=== PATIENT | male | born 1950 | race Caucasian/White ===

== ENCOUNTER → 2021-10-29 | Outpatient (CLI) | payer MEDICARE, SELFPAY ==
[2021-10-29 16:03] LABS: ALB/GLOB Ratio 1.1 RATIO (0.9-2.4); AST(SGOT) 20 U/L (15-37); Alanine Aminotransfer ALT/SGPT 27 U/L (16-61); Albumin, Serum 3.8 g/dL (3.2-5.0); Alkaline Phosphatase 60 U/L (45-117); Anion Gap 9 (5-15); BUN 21 mg/dL (7-18); BUN/Creat Ratio 32.1 RATIO (10-20); Calcium,Total 8.8 mg/dL (8.5-10.1); Chloride 109 mmol/L (98-107); Cholesterol 163 mg/dL (200); Creatinine, Serum 0.65 mg/dL (0.70-1.30); EST Glomerular Filtration Rate 127 mL/min (>60); Est Glom Filt Rate - Afr Amer 154 mL/min (>60); Globulin 3.6 g/dL (2.2-4.2); Glucose 122 mg/dL (74-106); High Density Lipoprotein 38 mg/dL; Protein, Total 7.4 g/dL (6.4-8.2); Sodium Level 139 mmol/L (136-145); Triglycerides 124 mg/dL; Very Low Density Lipoprotein 25 mg/dL (5-40)
== END | disposition home or self-care (01) ==
LOC: BIMLAB 14:28
PROVIDERS: PCP Family Medicine; Visit Provider Family Medicine
DX: I10 Essential (primary) hypertension (principal)
CPT/HCPCS: 36415; 80053; 80061

== ENCOUNTER → 2025-05-22 | Outpatient (CLI) | payer MEDICARE, OTHER, SELFPAY ==
--- NOTE | 2025-05-22 08:29 | CT_ITS ---
PROCEDURE: ABDOMEN/PELVIS WITH CONTRAST 05/22/2025 REASON FOR EXAM: POLYCYSTIC LIVER TECHNIQUE: Procedure Code: [id number] Modality: CT Procedure: ABDOMEN/PELVIS WITH CONTRAST Coronal and Sagittal reconstruction series were provided. CONTRAST: Isovue 3 7 VOLUME: 100 mL One or more dose reduction techniques were used (e.g., Automated exposure control, adjustment of the mA and/or kV according to patient size, use of iterative reconstruction technique. RADIATION DOSE SUMMARY: CTDlvol: 21.39 mGy DLP: 1103.71 mGycm COMPARISON: None FINDINGS: Lung bases: The lung bases are clear. Liver: Scattered cysts in both lobes of the liver. Gallbladder: Solitary gallstone in the neck of the gallbladder. Spleen: Normal size. Pancreas: Normal size without evidence of mass surrounding inflammation or ductal dilation. Adrenals: Unremarkable Kidneys: Small bilateral parapelvic renal cysts. There is a 9.6 mm cyst in the upper medial portion of the right kidney. Subcentimeter cysts are seen in the lower pole of the right kidney. Bladder: The urinary bladder is unremarkable. There is diffuse enlargement of the prostate gland with indentation at the bladder base. The prostate measures 5.3 cm by 5.7 cm. This causes indentation of the bladder base. Prostatic calcifications are seen. Bowel: Colonic diverticulosis without diverticulitis. Appendix: Unremarkable Lymph nodes: Unremarkable. Vasculature: Mild diffuse atherosclerotic calcifications are noted. Peritoneum / Retroperitoneum: Unremarkable Bones: Degenerative changes of the spine. CT/Abdomen/Pelvis WITH Contrast IMPRESSION: Scattered hepatic cysts. Solitary gallstone in the neck of the gallbladder. Bilateral parapelvic renal cysts. Prostatic enlargement with indentation of the bladder base. Sigmoid diverticulosis. Reading Location: [id number]
--- OUTSIDE RECORDS SUMMARY | 2025-05-22 08:53 | XMS RPT_ITS | CCD ---
Author Organization [facility] Care Team Providers Care Shop Welder Name Role Phone GLADYS BUTLER DO R Primary Care Physician Julio Agudelo Attending Unavailable Brown, Gladys R Primary Care Unavailable Brown, Gladys R Referring Unavailable Julio Agudelo Attending Unavailable Julio Agudelo Referring Unavailable Brown, Gladys R Primary Care Unavailable BROWN DO, GLADYS R Primary Care Unavailable JESUS CROOK Attending Unavailab le BROWN DO, GLADYS R Primary Care Unavailable JESUS CROOK Attending Unavailab le BROWN DO, GLADYS R Primary Care Unavailable JESUS CROOK Attending Unavailab le BROWN DO, GLADYS R Primary Care Unavailable FISH JESUS PINTO Attending Unavailab MALACHI White Attending Unavailable BROWN DO, GLADYS R Primary Care Unavailable Medications Current Medications Medication Drug Class(es) Dates Sig (Normalized) Sig (Original) carvedilol 6.25 mg oral tablet (4 sources) alpha-Adrenergic Shea, beta-Adrenergic Shea Start: 07-13-2024 carvedilol 6.25 mg oral tablet Dose : 3.125 mg = 0.5 tab(s), Oral, BID, # 180 tab(s), 3 Refill(s), Pharmacy: [facility]/pharmacy #[id number], 175.3, cm, 07/13/24 11:21:00 EST, Height, kg, 07/13/24 11:21:00 EST, Dosing Weight Start Date: 07/13/24 Status: Ordered Medication Dispense Status: Completed Quantity: 180.0 Unit: tab(s) Total Allowed Fills: 4 Fills Dispensed: 0 losartan potassium 50 mg oral tablet (4 sources) Angiotensin 2 Receptor Shea Start: 07-13-2024 losartan 50 mg oral tablet Dose : 50 mg = 1 tab(s), Oral, qDay, # 90 tab(s), 3 Refill(s), Pharmacy: [facility]/pharmacy #[id number], 175.3, cm, 07/13/24 11:21:00 EST, Height, kg, 07/13/24 11:21:00 EST, Dosing Weight Start Date: 07/13/24 Status: Ordered Medication Dispense Status: Completed Quantity: 90.0 Unit: tab(s) Total Allowed Fills: 4 Fills Dispensed: 0 Problems Problem Classification Problem Date Documented Date Episodic/Chronic Conduction disorders (4 sources) Left bundle branch block 11-16-2019 Chronic Digestive congenital anomalies (1 source) Cystic disease of liver; Translations: [Cystic disease of liver] Onset: 05-15-2025 Chronic Essential hypertension (5 sources) Essential hypertension; Translations: [Essential (primary) hypertension] Onset: 05-11-2025 11-16-2019 Chronic Heart valve disorders (4 sources) Mitral valve prolapse 11-16-2019 Chronic [place]-; endo-; and myocarditis; cardiomyopathy (except that caused by tuberculosis or sexually transmitted disease) (4 sources) Cardiomyopathy 11-16-2019 Chronic Results Test Name Value Interpretation Reference Range Facility .Auto Diffon 05-14-2025 Basophil, Absolute 0.1 10 3/mcL Normal 0.0-0.3 [facility] Comment on above: Performed By: #### A DIFF, ESR, ANEU, CMP, CBC, GFR #### [address] [address] Basophils/100 WBC (Bld) 0.8 % Normal 0.0-2.5 [facility] Comment on above: Performed By: #### A DIFF, ESR, ANEU, CMP, CBC, GFR #### [id number] [place], [place] [address] Eosinophil, Absolute 0.2 10 3/mcL Normal 0.0-0.7 [facility] Comment on above: Performed By: #### A DIFF, ESR, ANEU, CMP, CBC, GFR #### [id number] [place], [place] [address] Eosinophils/100 WBC (Bld) 3.1 % Normal 0.0-6.0 [facility] Comment on above: Performed By: #### A DIFF, ESR, ANEU, CMP, CBC, GFR #### [address] [address] Lymphocyte, Absolute 2.1 10 3/mcL Normal 0.9-4.3 [facility] Comment on above: Performed By: #### A DIFF, ESR, ANEU, CMP, CBC, GFR #### [address] [address] Lymphocytes/100 WBC (Bld) 30.5 % Normal 20.0-40.0 [facility] Comment on above: Performed By: #### A DIFF, ESR, ANEU, CMP, CBC, GFR #### [address] [address] Monocyte, Absolute 0.7 10 3/mcL Normal 0.1-1.4 [facility] Comment on above: Performed By: #### A DIFF, ESR, ANEU, CMP, CBC, GFR #### [address] [address] Monocytes/100 WBC (Bld) 10.0 % Normal 2.0-13.0 [facility] Comment on above: Performed By: #### A DIFF, ESR, ANEU, CMP, CBC, GFR #### [address] [address] Neutrophils/100 WBC (Bld) 55.6 % Normal 50.0-75.0 [facility] Comment on above: Performed By: #### A DIFF, ESR, ANEU, CMP, CBC, GFR #### [address] [address] .GFRon 05-14-2025 Estimated Glomerular Filtration Rate 92 ml/min/1.73sqm Normal [facility] Comment on above: Result Comment: Stages of Chronic Kidney Disease (CKD) Stage Description eGFR(ml/min/1.73 sq.m.) CKD 1 Normal kidney function or >=90 normal kindney function with possible kidney damage (ex. Proteinuria) CKD 2 Kidney damage with mild loss 60-89 of kidney function CKD 3a Mild to moderate loss of kidney 45-59 function CKD 3b Moderate to severe loss of 30-44 of kindey function CKD 4 Severe loss of kidney function 15-29 CKD 5 Kidney failure <15 Note: (go live 2024) the eGFR calculation was updated to the 2020 CKD-EPI creatinine equation without a race factor to calculate the eGFR results. Performed By: #### A DIFF, ESR, ANEU, CMP, CBC, GFR ####[address] [address] .NEUABSon 05-14-2025 Neutrophil, Absolute 3.9 10 3/mcL Normal 2.3-8.1 [facility] Comment on above: Performed By: #### A DIFF, ESR, ANEU, CMP, CBC, GFR ####[address] [address] CBCon 05-14-2025 Erythrocyte distribution width (RBC) [Ratio] 13.6 % Normal 11.5-15.5 [facility] Comment on above: Performed By: #### A DIFF, ESR, ANEU, CMP, CBC, GFR #### [address] [address] Hematocrit (Bld) [Volume fraction] 44.6 % Normal 40.0-52.0 [facility] Comment on above: Performed By: #### A DIFF, ESR, ANEU, CMP, CBC, GFR #### [address] [address] Hgb 15.2 G/dL Normal 13.0-17.5 [facility] Comment on above: Performed By: #### A DIFF, ESR, ANEU, CMP, CBC, GFR #### [address] [address] MCH (RBC) [Entitic mass] 31.6 pg Normal 27.0-33.0 [facility] Comment on above: Performed By: #### A DIFF, ESR, ANEU, CMP, CBC, GFR #### [address] [address] MCHC 34.1 G/dL Normal 32.0-36.0 [facility] Comment on above: Performed By: #### A DIFF, ESR, ANEU, CMP, CBC, GFR #### [address] [address] MCV (RBC) [Entitic vol] 92.8 fL Normal 81.0-100.0 [facility] Comment on above: Performed By: #### A DIFF, ESR, ANEU, CMP, CBC, GFR #### [address] [address] Platelet 226 10 3/mcL Normal 150-450 [facility] Comment on above: Performed By: #### A DIFF, ESR, ANEU, CMP, CBC, GFR #### [address] [address] Platelet mean volume (Bld) [Entitic vol] 8.1 fL Normal 6.4-10.5 [facility] Comment on above: Performed By: #### A DIFF, ESR, ANEU, CMP, CBC, GFR #### [place] [address] RBC 4.80 10 6/mcL Normal 4.50-6.00 [facility] Comment on above: Performed By: #### A DIFF, ESR, ANEU, CMP, CBC, GFR #### [address] [place] [address] WBC 7.0 10 3/mcL Normal 4.5-10.8 [facility] Comment on above: Performed By: #### A DIFF, ESR, ANEU, CMP, CBC, GFR #### [place] [id number] CMPon 05-14-2025 Albumin Level 3.9 G/dL Normal 3.4-4.8 [facility] Comment on above: Performed By: #### A DIFF, ESR, ANEU, CMP, CBC, GFR ####[place] [address] Albumin/Globulin [Mass ratio] 1.1 {ratio} Normal 1.1-2.5 [facility] Comment on above: Performed By: #### A DIFF, ESR, ANEU, CMP, CBC, GFR ####[id number] [place], [place] [address] ALP [Catalytic activity/Vol] 64 U/L Normal 40-135 [facility] Comment on above: Performed By: #### A DIFF, ESR, ANEU, CMP, CBC, GFR ####[address] [address] ALT [Catalytic activity/Vol] 21 U/L Normal 16-63 [facility] Comment on above: Performed By: #### A DIFF, ESR, ANEU, CMP, CBC, GFR ####[place] [id number] AST [Catalytic activity/Vol] 12 U/L Normal 10-40 [facility] Comment on above: Performed By: #### A DIFF, ESR, ANEU, CMP, CBC, GFR ####[place] [address] Bili Total 0.8 mg/dL Normal 0.2-1.0 [facility] Comment on above: Result Comment: Use of this assay is not recommended for patients undergoing treatment with eltrombopag due to the potential for falsely elevated results. Performed By: #### A DIFF, ESR, ANEU, CMP, CBC, GFR ####[place] [address] BUN/Creatinine Ratio 21 ratio Normal 7-27 [facility] Comment on above: Performed By: #### A DIFF, ESR, ANEU, CMP, CBC, GFR ####[address] [address] Calcium [Mass/Vol] 8.9 mg/dL Normal 8.4-10.2 [facility] Comment on above: Performed By: #### A DIFF, ESR, ANEU, CMP, CBC, GFR ####[address] [address] Chloride [Moles/Vol] 105 mmol/L Normal 98-107 [facility] Comment on above: Performed By: #### A DIFF, ESR, ANEU, CMP, CBC, GFR ####[place] [id number] CO2 [Moles/Vol] 26 mmol/L Normal 23-31 [facility] Comment on above: Performed By: #### A DIFF, ESR, ANEU, CMP, CBC, GFR ####[address] [address] Creatinine [Mass/Vol] 0.78 mg/dL Normal 0.67-1.17 [facility] Comment on above: Performed By: #### A DIFF, ESR, ANEU, CMP, CBC, GFR ####[address] [address] Electrolyte Balance 10.0 mEq/L Normal 4.0-15.0 [facility] Comment on above: Performed By: #### A DIFF, ESR, ANEU, CMP, CBC, GFR ####[id number] [place], [place] [address] Globulin 3.5 G/dL Normal 2.7-4.4 [facility] Comment on above: Performed By: #### A DIFF, ESR, ANEU, CMP, CBC, GFR ####[address] [address] Glucose [Mass/Vol] 89 mg/dL Normal 83-110 [facility] Comment on above: Performed By: #### A DIFF, ESR, ANEU, CMP, CBC, GFR ####[address] [address] Potassium [Moles/Vol] 3.9 mmol/L Normal 3.5-5.1 [facility] Comment on above: Performed By: #### A DIFF, ESR, ANEU, CMP, CBC, GFR ####[address] [address] Sodium [Moles/Vol] 141 mmol/L Normal 136-145 [facility] Comment on above: Performed By: #### A DIFF, ESR, ANEU, CMP, CBC, GFR ####[address] [address] Total Protein 7.4 G/dL Normal 6.4-8.2 [facility] Comment on above: Performed By: #### A DIFF, ESR, ANEU, CMP, CBC, GFR ####[facility] [place], [place] [address] Urea nitrogen [Mass/Vol] 16 mg/dL Normal 7-18 [facility] Comment on above: Performed By: #### A DIFF, ESR, ANEU, CMP, CBC, GFR ####[place] [place], [place] [address] ESRon 05-14-2025 Erythrocyte Sed Rate 4 mm/hr Normal 0-20 [facility] Comment on above: Performed By: #### A DIFF, ESR, ANEU, CMP, CBC, GFR ####[facility] [place], [place] [address] LABORATORYOrdered By: SYSTEM SYSTEM on 05-14-2025 Albumin BCP dye [Mass/Vol] 3.9 G/dL Normal 3.4 - 4.8 G/dL AO ADM SS Albumin/Globulin [Mass ratio] 1.1 {ratio} Normal 1.1 - 2.5 ratio AO ADM SS ALP [Catalytic activity/Vol] 64 U/L Normal 40 - 135 U/L AO ADM SS ALT With P-5'-P [Catalytic activity/Vol] 21 U/L Normal 16 - 63 U/L AO ADM SS AST With P-5'-P [Catalytic activity/Vol] 12 U/L Normal 10 - 40 U/L AO ADM SS Basophils (Bld) [#/Vol] 0.1 103/mcL Normal 0.0 - 0.3 10^3/mcL AO Workflow SS Basophils/100 WBC (Bld) 0.8 % Normal 0.0 - 2.5 % AO Workflow SS Bilirubin [Mass/Vol] 0.8 mg/dL Normal 0.2 - 1 .0 mg/dL AO ADM SS Comment on above: Interpretive Data: U se of this assay is not recommended for patients undergoing treatment with eltrombopag due to the potential for falsely elevated results. Calcium [Mass/Vol] 8.9 mg/dL Normal 8.4 - 10. 2 mg/dL AO ADM SS Chloride [Moles/Vol] 105 mmol/L Normal 98 - 10 7 mmol/L AO ADM SS CO2 [Moles/Vol] 26 mmol/L Normal 23 - 31 mmol/L AO ADM SS Creatinine [Mass/Vol] 0.78 mg/dL Normal 0.67 - 1.17 mg/dL AO ADM SS Electrolyte Balance 10.0 mEq/L Normal 4.0 - 15 .0 mEq/L AO ADM SS Eosinophil, Absolute 0.2 103/mcL Normal 0.0 - 0 .7 10^3/mcL AO Workflow SS Eosinophils/100 WBC (Bld) 3.1 % Normal 0.0 - 6.0 % AO Workflow SS Erythrocyte distribution width (RBC) [Ratio] 13.6 % Normal 11.5 - 15.5 % AO Workflow SS Globulin 3.5 G/dL Normal 2.7 - 4.4 G/dL AO ADM SS GLOMERULAR FILTRATION RATE/1.73 SQ M.PREDICTED:ARVRAT:PT :SER/PLAS/BLD:QN:CREA TININE-BASED FORMULA (CKD-EPI 2020) 92 ml/min/1.73sqm Invalid Interpretation Code AO Chemistry S Comment on above: Interpretive Data: Stages of Chronic Kidney Disease (CKD) Stage Description eGFR(ml/min/1.73 sq.m.) CKD 1 Normal kidney function or >=90 normal kindney function with possible kidney damage (ex. Proteinuria) CKD 2 Kidney damage with mild loss 60-89 of kidney function CKD 3a Mild to moderate loss of kidney 45-59 function CKD 3b Moderate to severe loss of 30-44 of kindey function CKD 4 Severe loss of kidney function 15-29 CKD 5 Kidney failure <15 Note: (go live 2024) the eGFR calculation was updated to the 2020 CKD-EPI creatinine equation without a race factor to calculate the eGFR results. Glucose [Mass/Vol] 89 mg/dL Normal 83 - 110 mg/dL AO ADM SS Hematocrit (Bld) [Volume fraction] 44.6 % Normal 40.0 - 52.0 % AO Workflow SS Hemoglobin (Bld) [Mass/Vol] 15.2 G/dL Normal 13.0 - 17.5 G/dL AO Workflow SS Lymphocytes (Bld) [#/Vol] 2.1 103/mcL Normal 0.9 - 4.3 10^3/mcL AO Workflow SS Lymphocytes/100 WBC (Bld) 30.5 % Normal 20.0 - 40.0 % AO Workflow SS MCH (RBC) [Entitic mass] 31.6 pg Normal 27.0 - 33.0 pg AO Workflow SS MCHC 34.1 G/dL Normal 32.0 - 36.0 G/dL AO Workflow SS MCV (RBC) [Entitic vol] 92.8 fL Normal 81.0 - 100.0 fL AO Workflow SS Monocytes (Bld) [#/Vol] 0.7 103/mcL Normal 0.1 - 1.4 10^3/mcL AO Workflow SS Monocytes/100 WBC (Bld) 10.0 % Normal 2.0 - 13.0 % AO Workflow SS Neutrophils (Bld) [#/Vol] 3.9 103/mcL Normal 2.3 - 8.1 10^3/mcL AO Workflow SS Neutrophils/100 WBC (Bld) 55.6 % Normal 50.0 - 75.0 % AO Workflow SS Platelet mean volume (Bld) [Entitic vol] 8.1 fL Normal 6.4 - 10.5 fL AO Workflow SS Platelets (Bld) [#/Vol] 226 103/mcL Normal 150 - 450 10^3/mcL AO Workflow SS Potassium [Moles/Vol] 3.9 mmol/L Normal 3.5 - 5.1 mmol/L AO ADM SS Protein [Mass/Vol] 7.4 G/dL Normal 6.4 - 8.2 G/dL AO ADM SS RBC (Bld) [#/Vol] 4.80 106/mcL Normal 4.50 - 6.0 0 10^6/mcL AO Workflow SS Sodium [Moles/Vol] 141 mmol/L Normal 136 - 145 mmol/L AO ADM SS Urea nitrogen [Mass/Vol] 16 mg/dL Normal 7 - 18 mg/dL AO ADM SS Urea nitrogen/Creatinine [Mass ratio] 21 ratio Normal 7 - 27 ratio AO ADM SS WBC (Bld) [#/Vol] 7.0 103/mcL Normal 4.5 - 10.8 10^3/mcL AO Workflow SS LABORATORYOrdered By: Galileo Velasco on 05-14-2025 ESR Photometric method (Bld) [Velocity] 4 mm/hr Normal 0 - 20 mm/hr AO Man Heme SS Internal Medicine Office Vis iton 05-11-2025 Internal Medicine Office Visit [facility] Internal Medicine [address] [place], [place] [id number] OFFICE VISIT Date of Service: 05/11/25 MR#: [id number] Acct: [id number] Name: DENAE SUMMERS Rep #: [id number] : 1950 Provider: MIGUEL Woodward Age/Sex: 74/M Location: [facility] Status: Signed Intake Vital Signs 10/29/21 13:30 05/11/25 07:45 Height 5 ft 9 in 5 ft 9 in Weight: 214 lb BMI 31.6 BP 126/78 H Blood Pressure Location Rt brachial Position Sitting Respiration 16 Pulse 88 Pulse Source Monitor Temp 97.7 F L Temp Source Temporal Pulse Oximetry (%) 94 Oxygen Delivery Method room air Intake Visit 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 Required: No Accompanied by: Self Is patient in pain?: No Allergies No Known Allergies Allergy (Unverified 05/11/25 07:41) Medications ???Medication ???Instructions ???Recorded ???Confirmed ???Type zinc [id number] cap PO 10/28/21 05/11/25 History xqwhvezc-jxduqox-wf g afr 15 mg-2 mg-160 mg cap Have you fallen in the past year?: No Nurse's Note: patient is taking medication but doesnt know what meds he is taking or the names of the medication will call with information [facility] Medical History Tinea corporis Family History Father Pancreatic cancer Social History Smoking Status: Never smoker alcohol intake: never substance use type: does not use what type of physical activity do you participate in: none HPI HPI Details: DENAE SUMMERS, is a 74 M who presents to the office today because she had a bunch of tests and was told to f/u if he wanted to proceed with treatment. Patient states that they scanned him about a week and a half ago and saw something on the liver while they were looking at his heart. He does not know what they saw. He said that they showed scabs or blisters on the liver or something. This was while they were evaluating his heart. He states that he had some blood work but that was a year ago. He states that he feels perfectly normal. 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 He denies any abdominal pains, nausea or vomiting, bloating, or any changes in his bowels. He does have cancer in his family. His father passed from cancer. His sons both had cancer. ROS Const Constitutional: No body ache, excessive sweating, fatigue, fever(s), frequent falls, headache(s), snoring, weakness, weight change, sleep problems or change in appetite Eyes Eyes: No blurry vision, change in vision, eye pain or Light sensitivity ENT ENT: No abnormal hearing, ear or mastoid pain, tinnitus, nasal congestion, headache(s), neck pain or sore throat Resp Respiratory: No cough, shortness of breath, snoring or wheezing Cardio Cardiology: No chest pain at rest, chest pain with exertion, excessive sweating, shortness of breath, dyspnea on exertion, lightheadedness, orthopnea or palpitations Gastro GI: No abdominal pain, change in bowel habits, constipation, cramping, diarrhea, nausea/dyspepsia or vomiting Genitourinary Male: No burning urination, painful urination, urinary incontinence, urinary frequency or blood in urine Musc Musculoskeletal: No abnormal gait, joint pain, back pain, limited range of motion, neck pain, numbness, stiffness, tingling or Arthritis Skin Skin: No dry skin, redness, lesions, itchy eyes, rash or wounds Neuro Neurology: No abnormal gait, abnormal hearing, abnormal speech, dizziness, weakness, frequent falls, headache(s), memory loss, numbness or tingling Psych Psychiatric: No anxiety, No change in appetite, No depression, No memory loss and No Thoughts of harming yourself/Others Endo Endocrine: No cold intolerance, excessive sweating, fatigue, flushing, heat intolerance, increased thirst/drinking, increased hunger or weight change Aller/Imm Allergy/Immunologic : No itchy eyes, seasonal allergy symptoms, hives or wheezing Joss/Lymp Hematologic/Lymphat ic: No easy bleeding, easy bruising or enlarged lymph nodes Exam Const General: cooperative, comfortable, no acute distress, well developed and well groomed Nutritional Appearance: overweight Orientation: alert, awake and oriented x3 Limitations: mental status not altered [facility] Head: normocephalic and atraumatic Ears: hearing grossly normal bilaterally Resp Effort Inspection: normal respiratory effort, able to speak in complete sentences and symmetric chest movement Auscultation: Bilateral: Clear to Auscultation Cardio Rate: regular rate Rhythm: regular rhythm Heart So (more content not included)... Normal [facility] US ABDOMEN COMPLETEon 2024 US ABDOMEN COMPLETE ORIGINAL EXAMINATION: COMPLETE ABDOMINAL ULTRASOUND 05/08/2025 9:01 am COMPARISON: None. HISTORY: ORDERING SYSTEM PROVIDED HISTORY: Reason for Exam: liver abmormality seen on echo FINDINGS: LIVER: The liver demonstrates diffusely increased echogenicity without evidence of intrahepatic biliary ductal dilatation. The liver measures 14.5 cm. There are multiple anechoic liver cysts largest measuring up to 1.9 x 2 x 3.7 cm. Several of these foci are septated/multilocul ated for example series 1, image 51. Antegrade flow in the main portal vein. BILIARY SYSTEM: No pericholecystic fluid. Gallbladder wall is borderline measuring 3.5 mm. There are multiple echogenic shadowing gallbladder calculi. Common bile duct is within normal limits measuring 5 mm. KIDNEYS: The kidneys are unremarkable in appearance without evidence of hydronephrosis. The right kidney measures 12.3 cm in the left kidney measures 11.8 cm. There is a an anechoic parapelvic cyst in the left kidney measuring up to 3.5 x 2.8 x 3.2 cm with a septation measuring up to 3 mm (series 1, image 102). PANCREAS: The pancreas is suboptimally visualized due to shadowing bowel gas. The visualized portions are diffusely echogenic. Small lesions are not excludable. SPLEEN: The spleen is unremarkable in appearance. Spleen is within normal limits in size. The aorta and IVC are obscured due to shadowing bowel gas. OTHER: No evidence of ascites. IMPRESSION: 1. Diffusely increased hepatic echogenicity which can be seen in setting of hepatic steatosis and or other diffuse hepatocellular disease. 2. Multiple liver cysts some of which are septated/multilocul ated. Consider further evaluation with dedicated liver mass protocol CT or MRI. 3. Cholelithiasis. No secondary findings to suggest acute cholecystitis. 4. Anechoic parapelvic cyst in the left kidney measuring up to 3.5 cm with a septation measuring up to 3 mm. Recommend further evaluation with dedicated renal mass protocol CT or MRI. Interpreted by: Billie Solano Preliminary Report By: Billie Solano Electronically signed By Billie Solano Dictated Date: 05/08/2025 1:10:02 PM Prelim Date: 05/08/2025 1:18:49 PM Sign Date: 05/08/2025 1:18:49 PM Ordering Provider: JESUS STAFFORD [facility] NM MYOCARDIAL SPECT STRESS/R ESTon 05-02-2025 NM MYOCARDIAL SPECT STRESS/REST ORIGINAL NM MYOCARDIAL SPECT STRESS/REST CLINICAL STATEMENT: Cardiomyopathy, undefined, further testing TECHNIQUE: Lexiscan dose:0.4 mg Radiopharmaceutical (stress): Tc-99m Sestamibi Dose:26.9 mCi Radiopharmaceutical (rest): Tc-99m Sestamibi Dose:8.4 mCi SPECT acquisition and processing Reconstruction and reorientation of SPECT images into short axis, vertical and horizontal long axis planes Quantitative LVEF assessment COMPARISON:2013 REPORT: Poststress myocardial perfusion images showed mild perfusion defect at the inferior wall and apical lateral wall and inferior septal wall Resting images showed similar perfusion LVEF 56% with apical hypokinesis TID 1.05 IMPRESSION: 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 extending to inferior and inferior septal wall Similar perfusion defect can be explained by artifact but with focal wall motion abnormality cannot rule out infarct Diaphragmatic attenuation artifact was noted No perfusion mismatch to suggest ischemia LVEF 56% with apical hypokinesis On CT scan multiple round semi echolucencies were noted in liver, suggest clinical correlation Interpreted By: Christos Herr Preliminary Report By: Christos Herr Electronically Signed By: Christos Herr Dictated Date: 05/02/2025 12:48:56 PM Prelim Date: 05/02/2025 12:48:56 PM Sign Date: 05/02/2025 12:55:30 PM Ordering Provider:Jesus Mock [facility] .Auto Diffon 10-04-2024 Basophil, Absolute 0.1 10 3/mcL Normal 0.0-0.3 [facility] Comment on above: Performed By: #### C MP, ANEU, LIPID, ADIFF, CBC, GFR #### [place] [id number] [place], [place] [address] Basophils/100 WBC (Bld) 0.8 % Normal 0.0-2.5 [facility] Comment on above: Performed By: #### C MP, ANEU, LIPID, ADIFF, CBC, GFR #### [address] [address] Eosinophil, Absolute 0.3 10 3/mcL Normal 0.0-0.7 [facility] Comment on above: Performed By: #### C MP, ANEU, LIPID, ADIFF, CBC, GFR #### [address] [address] Eosinophils/100 WBC (Bld) 3.4 % Normal 0.0-6.0 [facility] Comment on above: Performed By: #### C MP, ANEU, LIPID, ADIFF, CBC, GFR #### [address] [address] Lymphocyte, Absolute 2.4 10 3/mcL Normal 0.9-4.3 [facility] Comment on above: Performed By: #### C MP, ANEU, LIPID, ADIFF, CBC, GFR #### [address] [address] Lymphocytes/100 WBC (Bld) 32.2 % Normal 20.0-40.0 [facility] Comment on above: Performed By: #### C MP, ANEU, LIPID, ADIFF, CBC, GFR #### [address] [address] Monocyte, Absolute 0.7 10 3/mcL Normal 0.1-1.4 [facility] Comment on above: Performed By: #### C MP, ANEU, LIPID, ADIFF, CBC, GFR #### [address] [address] Monocytes/100 WBC (Bld) 9.7 % Normal 2.0-13.0 [facility] Comment on above: Performed By: #### C MP, ANEU, LIPID, ADIFF, CBC, GFR #### [address] [address] Neutrophils/100 WBC (Bld) 53.9 % Normal 50.0-75.0 [facility] Comment on above: Performed By: #### C MP, ANEU, LIPID, ADIFF, CBC, GFR #### [address] [address] .GFRon 10-04-2024 Estimated Glomerular Filtration Rate 92 ml/min/1.73sqm Normal [facility] Comment on above: Result Comment: Stages of Chronic Kidney Disease (CKD) Stage Description eGFR(ml/min/1.73 sq.m.) CKD 1 Normal kidney function or >=90 normal kindney function with possible kidney damage (ex. Proteinuria) CKD 2 Kidney damage with mild loss 60-89 of kidney function CKD 3a Mild to moderate loss of kidney 45-59 function CKD 3b Moderate to severe loss of 30-44 of kindey function CKD 4 Severe loss of kidney function 15-29 CKD 5 Kidney failure <15 Note: (go live 2024) the eGFR calculation was updated to the 2020 CKD-EPI creatinine equation without a race factor to calculate the eGFR results. Performed By: #### C MP, ANEU, LIPID, ADIFF, CBC, GFR #### [address] [address] .NEUABSon 10-04-2024 Neutrophil, Absolute 4.0 10 3/mcL Normal 2.3-8.1 [facility] Comment on above: Performed By: #### C MP, ANEU, LIPID, ADIFF, CBC, GFR #### [address] [address] CBCon 10-04-2024 Erythrocyte distribution width (RBC) [Ratio] 13.8 % Normal 11.5-15.5 [facility] Comment on above: Performed By: #### C MP, ANEU, LIPID, ADIFF, CBC, GFR #### [address] [address] Hematocrit (Bld) [Volume fraction] 44.0 % Normal 40.0-52.0 [facility] Comment on above: Performed By: #### C MP, ANEU, LIPID, ADIFF, CBC, GFR #### [address] [address] Hgb 15.0 G/dL Normal 13.0-17.5 [facility] Comment on above: Performed By: #### C MP, ANEU, LIPID, ADIFF, CBC, GFR #### [address] [address] MCH (RBC) [Entitic mass] 31.6 pg Normal 27.0-33.0 [facility] Comment on above: Performed By: #### C MP, ANEU, LIPID, ADIFF, CBC, GFR #### [address] [address] MCHC 34.1 G/dL Normal 32.0-36.0 [facility] Comment on above: Performed By: #### C MP, ANEU, LIPID, ADIFF, CBC, GFR #### [address] [address] MCV (RBC) [Entitic vol] 92.7 fL Normal 81.0-100.0 [facility] Comment on above: Performed By: #### C MP, ANEU, LIPID, ADIFF, CBC, GFR #### [address] [address] Platelet 218 10 3/mcL Normal 150-450 [facility] Comment on above: Performed By: #### C MP, ANEU, LIPID, ADIFF, CBC, GFR #### [address] [address] Platelet mean volume (Bld) [Entitic vol] 7.6 fL Normal 6.4-10.5 [facility] Comment on above: Performed By: #### C MP, ANEU, LIPID, ADIFF, CBC, GFR #### [address] [address] RBC 4.75 10 6/mcL Normal 4.50-6.00 [facility] Comment on above: Performed By: #### C MP, ANEU, LIPID, ADIFF, CBC, GFR #### [address] [address] WBC 7.4 10 3/mcL Normal 4.5-10.8 [facility] Comment on above: Performed By: #### C MP, ANEU, LIPID, ADIFF, CBC, GFR #### [address] [address] CMPon 10-04-2024 Albumin Level 4.1 G/dL Normal 3.4-4.8 [facility] Comment on above: Performed By: #### C MP, ANEU, LIPID, ADIFF, CBC, GFR #### [address] [address] Albumin/Globulin [Mass ratio] 1.2 {ratio} Normal 1.1-2.5 [facility] Comment on above: Performed By: #### C MP, ANEU, LIPID, ADIFF, CBC, GFR #### [address] [address] ALP [Catalytic activity/Vol] 61 U/L Normal 40-135 [facility] Comment on above: Performed By: #### C MP, ANEU, LIPID, ADIFF, CBC, GFR #### [address] [address] ALT [Catalytic activity/Vol] 23 U/L Normal 16-63 [facility] Comment on above: Performed By: #### C MP, ANEU, LIPID, ADIFF, CBC, GFR #### [address] [address] AST [Catalytic activity/Vol] 16 U/L Normal 10-40 [facility] Comment on above: Performed By: #### C MP, ANEU, LIPID, ADIFF, CBC, GFR #### [address] [address] Bili Total 0.8 mg/dL Normal 0.2-1.0 [facility] Comment on above: Result Comment: Use of this assay is not recommended for patients undergoing treatment with eltrombopag due to the potential for falsely elevated results. Performed By: #### C MP, ANEU, LIPID, ADIFF, CBC, GFR #### [address] [address] BUN/Creatinine Ratio 27 ratio Normal 7-27 [facility] Comment on above: Performed By: #### C MP, ANEU, LIPID, ADIFF, CBC, GFR #### [address] [address] Calcium [Mass/Vol] 8.9 mg/dL Normal 8.4-10.2 [facility] Comment on above: Performed By: #### C MP, ANEU, LIPID, ADIFF, CBC, GFR #### [address] [address] Chloride [Moles/Vol] 107 mmol/L Normal 98-107 [facility] Comment on above: Performed By: #### C MP, ANEU, LIPID, ADIFF, CBC, GFR #### [place] [address] CO2 [Moles/Vol] 26 mmol/L Normal 23-31 [facility] Comment on above: Performed By: #### C MP, ANEU, LIPID, ADIFF, CBC, GFR #### [address] [address] Creatinine [Mass/Vol] 0.78 mg/dL Normal 0.70-1.30 [facility] Comment on above: Result Comment: Test ing performed on Siemens Dimension EXL analyzer using a modified kinetic Dayanara technique. Performed By: #### C MP, ANEU, LIPID, ADIFF, CBC, GFR #### [place] [id number] Electrolyte Balance 8.0 mEq/L Normal 4.0-15.0 [facility] Comment on above: Performed By: #### C MP, ANEU, LIPID, ADIFF, CBC, GFR #### [place] [address] Globulin 3.3 G/dL Normal 1.5-3.8 [facility] Comment on above: Performed By: #### C MP, ANEU, LIPID, ADIFF, CBC, GFR #### [place] [address] Glucose [Mass/Vol] 91 mg/dL Normal 83-110 [facility] Comment on above: Performed By: #### C MP, ANEU, LIPID, ADIFF, CBC, GFR #### [address] [address] Potassium [Moles/Vol] 4.1 mmol/L Normal 3.5-5.1 [facility] Comment on above: Performed By: #### C MP, ANEU, LIPID, ADIFF, CBC, GFR #### [address] [address] Sodium [Moles/Vol] 141 mmol/L Normal 136-145 [facility] Comment on above: Performed By: #### C MP, ANEU, LIPID, ADIFF, CBC, GFR #### [address] [address] Total Protein 7.4 G/dL Normal 6.4-8.2 [facility] Comment on above: Performed By: #### C MP, ANEU, LIPID, ADIFF, CBC, GFR #### [address] [address] Urea nitrogen [Mass/Vol] 21 mg/dL High 7-18 [facility] Comment on above: Performed By: #### C MP, ANEU, LIPID, ADIFF, CBC, GFR #### [address] [address] LIPIDon 10-04-2024 Cholesterol [Mass/Vol] 155 mg/dL Normal 0-200 [facility] Comment on above: Result Comment: Chol esterol Reference Interval: Less than 200 Desirable 200-239 Borderline high risk 240 and above High risk Performed By: #### C MP, ANEU, LIPID, ADIFF, CBC, GFR #### [address] [address] Cholesterol in HDL [Mass/Vol] 47 mg/dL Normal 40-60 [facility] Comment on above: Performed By: #### C MP, ANEU, LIPID, ADIFF, CBC, GFR #### [address] [address] Cholesterol in LDL [Mass/Vol] 97 mg/dL Normal 0-130 [facility] Comment on above: Performed By: #### C MP, ANEU, LIPID, ADIFF, CBC, GFR #### [place] [address] Triglyceride [Mass/Vol] 54 mg/dL Normal 0-150 [facility] Comment on above: Result Comment: Trig lyceride Reference Interval: Less than 150 Normal 150-199 Borderline high risk 200-499 High risk 500 or higher Very high risk Performed By: #### C MP, ANEU, LIPID, ADIFF, CBC, GFR #### [place] [address] .Auto Diffon 04-16-2019 Ammonia (P) [Mass/Vol] 0.60 10 3/mcL Normal 0.15-1.00 [facility] Comment on above: Performed By: #### C BC, ADIFF, ANEU #### [place] [address] #### TROP, BMP, GFR #### [address] [address] Basophils (Bld) [#/Vol] 0.00 10 3/mcL Normal 0.00-0.19 [facility] Comment on above: Performed By: #### C BC, ADIFF, ANEU #### [place] [address] #### TROP, BMP, GFR #### [address] [address] Basophils/100 WBC (Bld) 0.5 % Normal 0.0-2.5 [facility] [place] Comment on above: Performed By: #### C BC, ADIFF, ANEU #### [place] [address] #### TROP, BMP, GFR #### [address] [address] Eosinophils (Bld) [#/Vol] 0.20 10 3/mcL Normal 0.00-0.40 [facility] [place] Comment on above: Performed By: #### C BC, ADIFF, ANEU #### [address] [address] #### TROP, BMP, GFR #### [address] [address] Eosinophils/100 WBC (Bld) 1.9 % Normal 0.0-7.0 [facility] Comment on above: Performed By: #### C BC, ADIFF, ANEU #### [address] [address] #### TROP, BMP, GFR #### [address] [address] Lymphocytes (Bld) [#/Vol] 1.70 10 3/mcL Normal 0.77-3.85 [facility] Comment on above: Performed By: #### C BC, ADIFF, ANEU #### [address] [address] #### TROP, BMP, GFR #### [address] [address] Lymphocytes/100 WBC (Bld) 19.8 % Normal 10.0-50.0 [facility] [place] Comment on above: Performed By: #### C BC, ADIFF, ANEU #### [place] [address] #### TROP, BMP, GFR #### [address] [address] Monocytes/100 WBC (Bld) 7.0 % Normal 1.7-13.0 [facility] [place] Comment on above: Performed By: #### C BC, ADIFF, ANEU #### [address] [address] #### TROP, BMP, GFR #### [address] [address] Neutrophils/100 WBC (Bld) 70.8 % Normal 37.0-80.0 [facility] Comment on above: Performed By: #### C BC, ADIFF, ANEU #### [place] [id number] #### TROP, BMP, GFR #### [address] [address] .GFRon 04-16-2019 GFR Non- 111 ml/min/1.73sqm Normal [facility] ([place]) Comment on above: Result Comment: GFR Population mean for , Non- Americans Ages 20-29 = 116 mL/min/1.73 sq.m. Ages 30-39 = 107 mL/min/1.73 sq.m. Ages 40-49 = 99 mL/min/1.73 sq.m. Ages 50-59 = 93 mL/min/1.73 sq.m. Ages 60-69 = 85 mL/min/1.73 sq.m. Ages 70+ = 75 mL/min/1.73 sq.m. Chronic Kidney Disease: Less than 60 mL/min/1.73 square meters End Stage Renal Disease: Less than 15 mL/min/1.73 square meters Performed By: #### C BCISAAK, ANEU #### [address] [address] #### LIPID, CMP, GFR #### [place] [id number] GFR 135 ml/min/1.73sqm Normal [facility] [place] Comment on above: Result Comment: GFR Population mean for , Non- Americans Ages 20-29 = 116 mL/min/1.73 sq.m. Ages 30-39 = 107 mL/min/1.73 sq.m. Ages 40-49 = 99 mL/min/1.73 sq.m. Ages 50-59 = 93 mL/min/1.73 sq.m. Ages 60-69 = 85 mL/min/1.73 sq.m. Ages 70+ = 75 mL/min/1.73 sq.m. Chronic Kidney Disease: Less than 60 mL/min/1.73 square meters End Stage Renal Disease: Less than 15 mL/min/1.73 square meters Performed By: #### C BC, ADIFF, ANEU #### [address] [address] #### LIPID, CMP, GFR #### [address] [address] .NEUABSon 04-16-2019 Neutrophils (Bld) [#/Vol] 6.20 10 3/mcL High 2.85-6.16 [facility] Comment on above: Performed By: #### C BC, ADIFF, ANEU #### [address] [address] #### TROP, BMP, GFR #### [place] [address] BMPon 04-16-2019 Calcium [Mass/Vol] 9.4 mg/dL Normal 8.4-10.2 [facility] ([place] Comment on above: Performed By: #### C BC, ADIFF, ANEU #### [address] [address] #### LIPID, CMP, GFR #### [place] [address] Chloride [Moles/Vol] 103 mmol/L Normal 98-107 [facility] ([place] Comment on above: Performed By: #### C BC, ADIFF, ANEU #### [place] [address] #### LIPID, CMP, GFR #### [place] [address] CO2 [Moles/Vol] 26 mmol/L Normal 23-31 [facility] Comment on above: Performed By: #### C BC, ADIFF, ANEU #### [address] [address] #### LIPID, CMP, GFR #### [place] [address] Creatinine [Mass/Vol] 0.70 mg/dL Normal 0.70-1.30 [facility] ([place] Comment on above: Performed By: #### C BC, ADIFF, ANEU #### [place] [address] #### LIPID, CMP, GFR #### [address] [address] Electrolyte Balance 11.0 mEq/L Normal [facility] ([place]) Comment on above: Performed By: #### C BC, ADIFF, ANEU #### [address] [address] #### LIPID, CMP, GFR #### [address] [address] Glucose [Mass/Vol] 113 mg/dL High 83-110 [facility] ([place] Comment on above: Performed By: #### C BC, ADIFF, ANEU #### [address] [address] #### LIPID, CMP, GFR #### [address] [address] Potassium [Moles/Vol] 4.3 mmol/L Normal 3.5-5.1 [facility] ([place] Comment on above: Performed By: #### C BC ADIFF, ANEU #### [address] [address] #### LIPID, CMP, GFR #### [address] [address] Sodium [Moles/Vol] 140 mmol/L Normal 136-145 [facility] ([place] Comment on above: Performed By: #### C BC, ADIFF, ANEU #### [address] [address] #### LIPID, CMP, GFR #### [address] [address] Urea nitrogen [Mass/Vol] 20 mg/dL High 7-18 [facility] [place] Comment on above: Performed By: #### C BC, ADIFF, ANEU #### [address] [address] #### LIPID, CMP, GFR #### [address] [address] Urea nitrogen/Creatinine [Mass ratio] 29 ratio High 7-27 [facility] [place] Comment on above: Performed By: #### C BC, ADIFF, ANEU #### [address] [address] #### LIPID, CMP, GFR #### [address] [address] CBCon 04-16-2019 Erythrocyte distribution width (RBC) [Ratio] 13.4 % Normal 11.5-14.5 [facility] [place] Comment on above: Performed By: #### C BC, ADIFF, ANEU #### [place] [address] #### TROP, BMP, GFR #### [place] [address] Hematocrit (Bld) [Volume fraction] 45.9 % Normal 42.0-52.0 [facility] Comment on above: Performed By: #### C BC, ADIFF, ANEU #### [place] [address] #### TROP, BMP, GFR #### [place] [address] Hemoglobin (Bld) [Mass/Vol] 15.2 G/dL Normal 14.0-18.0 [facility] [place] Comment on above: Performed By: #### C BC, ADIFF, ANEU #### [place] [address] #### TROP, BMP, GFR #### [place] [address] MCH (RBC) [Entitic mass] 31.2 pg Normal 27.0-31.2 [facility] [place] Comment on above: Performed By: #### C BC, ADIFF, ANEU #### [place] [address] #### TROP, BMP, GFR #### [place] [id number] MCHC (RBC) [Mass/Vol] 33.2 G/dL Normal 31.8-35.4 [facility] ([place]) Comment on above: Performed By: #### C BC, ADIFF, ANEU #### [address] [address] #### TROP, BMP, GFR #### [address] [address] MCV (RBC) [Entitic vol] 93.8 fL Normal 80.0-94.0 [facility] [place] Comment on above: Performed By: #### C BC, ADIFF, ANEU #### [address] [address] #### TROP, BMP, GFR #### [address] [address] Platelet mean volume (Bld) [Entitic vol] 7.4 fL Normal 7.4-10.4 [facility] ([place] Comment on above: Performed By: #### C BC, ADIFF, ANEU #### [address] [address] #### TROP, BMP, GFR #### [address] [address] Platelets (Bld) [#/Vol] 198 10 3/mcL Normal 130-400 [facility] [place] Comment on above: Performed By: #### C BC, ADIFF, ANEU #### [address] [address] #### TROP, BMP, GFR #### [address] [address] RBC (Bld) [#/Vol] 4.89 10 6/mcL Normal 4.04-6.13 [facility] ([place] Comment on above: Performed By: #### C BC, ADIFF, ANEU #### [address] [address] #### TROP, BMP, GFR #### [address] [address] WBC (Bld) [#/Vol] 8.70 10 3/mcL Normal 4.60-10.80 [facility] ([place] Comment on above: Performed By: #### C BC, ADIFF, ANEU #### [address] [place], [place] [address] #### TROP, BMP, GFR #### [place] [id number] [address] [place], [place] [id number] CT HEAD OR BRAIN W/O CONTRAS Ton 04-16-2019 CT HEAD OR BRAIN W/O CONTRAST ORIGINAL CT HEAD OR BRAIN W/O CONTRAST CLINICAL STATEMENT: change in mental status/weakness/aph lion. TECHNIQUE: Axial CT images from skull base to vertex without IV contrast. This exam was performed according to our departmental dose optimization program, and includes the following measures where applicable: automated exposure control, adjustment of the mAs and/or kVp according to patient size and/or exam, and an iterative reconstruction algorithm. COMPARISON: None. FINDINGS: There is no acute intracranial hemorrhage, mass, mass effect or abnormal extra-axial fluid collection. There is no CT evidence of acute infarct. Scattered parenchymal hypodensities in the cerebral white matter are nonspecific but statistically most consistent with mild chronic microvascular angiopathy. Atherosclerotic calcifications are present in the cavernous carotid arteries bilaterally. There is proportionate enlargement of the ventricular system and cortical sulci, compatible with parenchymal volume loss. The skull base and calvarium demonstrate no abnormality. The paranasal sinuses are clear. Included mastoid air cells are clear. IMPRESSION: No acute intracranial hemorrhage, hydrocephalus, or mass effect. Interpreted By: Varsha Waggoner MD Preliminary Report By: Varsha Waggoner MD Electronically Signed By: Varsha Waggoner MD Dictated Date: 04/16/2019 11:27:42 AM Prelim Date: 04/16/2019 11:27:42 AM Sign Date: 04/16/2019 11:30:05 AM Ordering Provider:Seng Alexandra [facility]) STANLEYon 04-16-2019 Troponin I.cardiac [Mass/Vol] ng/mL Normal 0.000-0.040 [facility] [place] Comment on above: Result Comment: Trop onin I reference range: 0.00-0.040 ng/mL Negative and non-diagnostic. >0.040 ng/mL Consistent with cardiac damage, increased clinical risk and possibility of myocardial infarction. Serial measurements, a rise & fall in test results, clinical history, appropriate symptoms and/or ECG changes may help assess possibility of DC. *Other non-acute coronary syndrome conditions such as CHF, myocarditis, pulmonary emboli, sepsis and cardiac surgery could result in myocardial damage and increased troponin levels. Performed By: #### C BC, ADIFF, ANEU #### [place] [address] #### TROP, BMP, GFR #### [address] [address] .Auto Diffon 12-12-2018 Ammonia (P) [Mass/Vol] 0.70 10 3/mcL Normal 0.15-1.00 [facility] [place] Comment on above: Performed By: #### C BC, ADIFF, ANEU #### [place] [address] #### LIPID, CMP, GFR #### [place] [id number] Basophils (Bld) [#/Vol] 0.10 10 3/mcL Normal 0.00-0.19 [facility] ([place] Comment on above: Performed By: #### C BC, ADIFF, ANEU #### [place] [address] #### LIPID, CMP, GFR #### [address] [address] Basophils/100 WBC (Bld) 0.8 % Normal 0.0-2.5 [facility] ([place] Comment on above: Performed By: #### C BC, ADIFF, ANEU #### [place] [address] #### LIPID, CMP, GFR #### [address] [address] Eosinophils (Bld) [#/Vol] 0.20 10 3/mcL Normal 0.00-0.40 [facility] [place] Comment on above: Performed By: #### C BC, ADIFF, ANEU #### [place] [address] #### LIPID, CMP, GFR #### [address] [address] Eosinophils/100 WBC (Bld) 3.4 % Normal 0.0-7.0 [facility] [place] Comment on above: Performed By: #### C BC, ADIFF, ANEU #### [address] [address] #### LIPID, CMP, GFR #### [address] [address] Lymphocytes (Bld) [#/Vol] 2.50 10 3/mcL Normal 0.77-3.85 [facility] [place] Comment on above: Performed By: #### C BC, ADIFF, ANEU #### [address] [address] #### LIPID, CMP, GFR #### [address] [address] Lymphocytes/100 WBC (Bld) 36.5 % Normal 10.0-50.0 [facility] ([place] Comment on above: Performed By: #### C BC, ADIFF, ANEU #### [address] [address] #### LIPID, CMP, GFR #### [address] [address] Monocytes/100 WBC (Bld) 10.4 % Normal 1.7-13.0 [facility] [place] Comment on above: Performed By: #### C BC, ADIFF, ANEU #### [address] [address] #### LIPID, CMP, GFR #### [address] [address] Neutrophils/100 WBC (Bld) 48.9 % Normal 37.0-80.0 [facility] [place] Comment on above: Performed By: #### C BC, ADIFF, ANEU #### [address] [address] #### LIPID, CMP, GFR #### [address] [address] .GFRon 12-12-2018 GFR 116 ml/min/1.73sqm Normal [facility] ([place] Comment on above: Result Comment: GFR Population mean for , Non- Americans Ages 20-29 = 116 mL/min/1.73 sq.m. Ages 30-39 = 107 mL/min/1.73 sq.m. Ages 40-49 = 99 mL/min/1.73 sq.m. Ages 50-59 = 93 mL/min/1.73 sq.m. Ages 60-69 = 85 mL/min/1.73 sq.m. Ages 70+ = 75 mL/min/1.73 sq.m. Chronic Kidney Disease: Less than 60 mL/min/1.73 square meters End Stage Renal Disease: Less than 15 mL/min/1.73 square meters Performed By: #### C BC, ADIFF, ANEU #### [address] [address] #### LIPID, CMP, GFR #### [address] [address] GFR Non- 96 ml/min/1.73sqm Normal [facility] [place] Comment on above: Result Comment: GFR Population mean for , Non- Americans Ages 20-29 = 116 mL/min/1.73 sq.m. Ages 30-39 = 107 mL/min/1.73 sq.m. Ages 40-49 = 99 mL/min/1.73 sq.m. Ages 50-59 = 93 mL/min/1.73 sq.m. Ages 60-69 = 85 mL/min/1.73 sq.m. Ages 70+ = 75 mL/min/1.73 sq.m. Chronic Kidney Disease: Less than 60 mL/min/1.73 square meters End Stage Renal Disease: Less than 15 mL/min/1.73 square meters Performed By: #### C BC, ADIFF, ANEU #### [address] [address] #### LIPID, CMP, GFR #### [address] [address] .NEUABSon 12-12-2018 Neutrophils (Bld) [#/Vol] 3.30 10 3/mcL Normal 2.85-6.16 [facility] [place] Comment on above: Performed By: #### C BC, ADIFF, ANEU #### [address] [address] #### LIPID, CMP, GFR #### [address] [address] CBCon 12-12-2018 Erythrocyte distribution width (RBC) [Ratio] 13.8 % Normal 11.5-14.5 [facility] [place] Comment on above: Performed By: #### C PEDRO LOPEZIFF, ANEU #### [place] [address] #### LIPID, CMP, GFR #### [place] [address] Hematocrit (Bld) [Volume fraction] 42.1 % Normal 42.0-52.0 [facility] [place] Comment on above: Performed By: #### ISAAK JENKINS, ANEU #### [place] [address] #### LIPID, CMP, GFR #### [place] [address] Hemoglobin (Bld) [Mass/Vol] 14.4 G/dL Normal 14.0-18.0 [facility] [place] Comment on above: Performed By: #### C ISAAK LOPEZ, ANEU #### [place] [address] #### LIPID, CMP, GFR #### [place] [address] MCH (RBC) [Entitic mass] 31.6 pg High 27.0-31.2 [facility] [place] Comment on above: Performed By: #### C PEDRO LOPEZIFF, ANEU #### [place] [address] #### LIPID, CMP, GFR #### [place] [id number] MCHC (RBC) [Mass/Vol] 34.3 G/dL Normal 31.8-35.4 [facility] ([place] Comment on above: Performed By: #### C ISAAK LOPEZ, ANEU #### [address] [address] #### LIPID, CMP, GFR #### [address] [address] MCV (RBC) [Entitic vol] 92.4 fL Normal 80.0-94.0 [facility] [place] Comment on above: Performed By: #### C BC, ADIFF, ANEU #### [address] [address] #### LIPID, CMP, GFR #### [address] [address] Platelet mean volume (Bld) [Entitic vol] 7.8 fL Normal 7.4-10.4 [facility] ([place] Comment on above: Performed By: #### C BC, ADIFF, ANEU #### [address] [address] #### LIPID, CMP, GFR #### [address] [address] Platelets (Bld) [#/Vol] 208 10 3/mcL Normal 130-400 [facility] Comment on above: Performed By: #### C BC, ADIFF, ANEU #### [address] [address] #### LIPID, CMP, GFR #### [address] [address] RBC (Bld) [#/Vol] 4.56 10 6/mcL Normal 4.04-6.13 [facility] ([place] Comment on above: Performed By: #### C BC, ADIFF, ANEU #### [address] [address] #### LIPID, CMP, GFR #### [address] [address] WBC (Bld) [#/Vol] 6.80 10 3/mcL Normal 4.60-10.80 [facility] ([place] Comment on above: Performed By: #### C BC, ADIFF, ANEU #### [address] [address] #### LIPID, CMP, GFR #### [address] [address] CMPon 12-12-2018 Albumin [Mass/Vol] 4.0 G/dL Normal 3.4-4.8 [facility] ([place] Comment on above: Performed By: #### C BC, ADIFF, ANEU #### [place] [place] [address] #### LIPID, CMP, GFR #### [place] [address] Albumin/Globulin [Mass ratio] 1.4 {ratio} Normal 1.1-2.5 [facility] ([place] Comment on above: Performed By: #### C BC, ADIFF, ANEU #### [place] [address] #### LIPID, CMP, GFR #### [place] [address] ALP [Catalytic activity/Vol] 58 U/L Normal 40-135 [facility] ([place]) Comment on above: Performed By: #### C BC, ADIFF, ANEU #### [place] [address] #### LIPID, CMP, GFR #### [place] [address] ALT [Catalytic activity/Vol] 25 U/L Normal 10-35 [facility] ([place] Comment on above: Performed By: #### C BC, ADIFF, ANEU #### [place] [address] #### LIPID, CMP, GFR #### [address] [address] AST [Catalytic activity/Vol] 18 U/L Normal 10-40 [facility] ([place] Comment on above: Performed By: #### C BC, ADIFF, ANEU #### [place] [address] #### LIPID, CMP, GFR #### [place] [id number] Bili Total 0.6 mg/dL Normal 0.2-1.0 [facility] [place] Comment on above: Performed By: #### C BC, ADIFF, ANEU #### [address] [address] #### LIPID, CMP, GFR #### [address] [address] Calcium [Mass/Vol] 8.9 mg/dL Normal 8.4-10.2 [facility] ([place] Comment on above: Performed By: #### C BC, ADIFF, ANEU #### [address] [address] #### LIPID, CMP, GFR #### [address] [address] Chloride [Moles/Vol] 106 mmol/L Normal 98-107 [facility] ([place] Comment on above: Performed By: #### C BC, ADIFF, ANEU #### [address] [address] #### LIPID, CMP, GFR #### [address] [address] CO2 [Moles/Vol] 28 mmol/L Normal 23-31 [facility] [place] Comment on above: Performed By: #### C BC, ADIFF, ANEU #### [address] [address] #### LIPID, CMP, GFR #### [address] [address] Creatinine [Mass/Vol] 0.80 mg/dL Normal 0.70-1.30 [facility] ([place]) Comment on above: Performed By: #### C BC, ADIFF, ANEU #### [address] [address] #### LIPID, CMP, GFR #### [address] [address] Electrolyte Balance 9.0 mEq/L Normal [facility] ([place]) Comment on above: Performed By: #### C BC, ADIFF, ANEU #### [address] [address] #### LIPID, CMP, GFR #### [address] [address] Globulin (S) [Mass/Vol] 2.9 G/dL Normal [facility] ([place] Comment on above: Performed By: #### C BC, ADIFF, ANEU #### [address] [address] #### LIPID, CMP, GFR #### [address] [address] Glucose [Mass/Vol] 77 mg/dL Low 83-110 [facility] ([place] Comment on above: Performed By: #### C BC, ADIFF, ANEU #### [address] [address] #### LIPID, CMP, GFR #### [address] [address] Potassium [Moles/Vol] 4.2 mmol/L Normal 3.5-5.1 [facility] ([place] Comment on above: Performed By: #### C BC, ADIFF, ANEU #### [address] [address] #### LIPID, CMP, GFR #### [address] [address] Protein [Mass/Vol] 6.9 G/dL Normal 6.4-8.2 [facility] ([place] Comment on above: Performed By: #### C BC, ADIFF, ANEU #### [address] [address] #### LIPID, CMP, GFR #### [address] [address] Sodium [Moles/Vol] 143 mmol/L Normal 136-145 [facility] ([place] Comment on above: Performed By: #### C BC, ADIFF, ANEU #### [address] [address] #### LIPID, CMP, GFR #### [facility] [address] [place] [address] Urea nitrogen [Mass/Vol] 26 mg/dL High 01-19 [facility] [place] Comment on above: Performed By: #### C BC, ADIFF, ANEU #### [address] [address] #### LIPID, CMP, GFR #### [facility] [address] [place] [address] Urea nitrogen/Creatinine [Mass ratio] 32 ratio High 01-28 [facility] [place] Comment on above: Performed By: #### C BC, ADIFF, ANEU #### [address] [address] #### LIPID, CMP, GFR #### [address] [address] LIPIDon 12-12-2018 Cholesterol [Mass/Vol] 140 mg/dL Normal 0-200 [facility] ([place] Comment on above: Result Comment: Chol esterol Reference Interval: Less than 200 Desirable 200-239 Borderline high risk 240 and above High risk Performed By: #### C BC, ADIFF, ANEU #### [address] [address] #### LIPID, CMP, GFR #### [address] [address] Cholesterol in HDL [Mass/Vol] 46 mg/dL Normal 40-60 [facility] [place] Comment on above: Performed By: #### C BC, ADIFF, ANEU #### [address] [address] #### LIPID, CMP, GFR #### [address] [address] Cholesterol in LDL [Mass/Vol] 87 mg/dL Normal 0-130 [facility] [place] Comment on above: Performed By: #### C BC, ADIFF, ANEU #### [address] [address] #### LIPID, CMP, GFR #### [address] [address] Triglyceride [Mass/Vol] 34 mg/dL Normal 0-150 [facility] [place] Comment on above: Result Comment: Trig lyceride Reference Interval: Less than 150 Normal 150-199 Borderline high risk 200-499 High risk 500 or higher Very high risk Performed By: #### C BC, ADIFF, ANEU #### [facility] [address] [place], [place] [address] #### LIPID, CMP, GFR #### [facility] [address] [place] [address] Encounters Encounter Date Encounter Type Care Provider Facility Start: 05-22-2025 ambulatory Julio RIVERA Facilit y:[facility] Start: 05-14-2025 End: 05-14-2025 ambulatory MALACHI RIVERA [facility] Start: 05-14-2025 End: 05-14-2025 Patient encounter procedure MALACHI RIVERA [facility] Start: 05-11-2025 End: 05-11-2025 ambulatory Julio RIVERA Facility:[facility] Start: 05-08-2025 End: 05-08-2025 ambulatory GLADYS R LUKE DO Facility[facility] Start: 05-08-2025 End: 05-08-2025 Patient encounter procedure JESUS STAFFORD [employer] [facility] Start: 05-02-2025 End: 05-02-2025 ambulatory GLADYS R BROWN DO Facility:[facility] Start: 05-02-2025 End: 05-02-2025 Patient encounter procedure JESUS FISH [employer] [facility] Start: 03-29-2025 End: 03-29-2025 ambulatory GLADYS R BROWN DO Facility:[facility] Start: 03-29-2025 End: 03-29-2025 Patient encounter procedure JESUS FISH [employer] [facility] Start: 10-04-2024 End: 10-04-2024 ambulatory GLADYS BUTLER Facility[facility] [place] Procedures Date Procedure Procedure Detail Performing Clinician None (qualifier value) REENA PARKER SEAN [employer] Payers Date Payer Category Payer Self-pay [id number] 2025 Unknown [id number] 2024 Medicare [id number] 2024 Private Health Insurance [id number] 2024 Unknown [id number] 2014 Medicare [id number] 1948 Unknown [id number] 2.16. [id number] 1948 Unknown [id number] 2.16. [id number] 1948 Unknown [id number] 2.16. [id number] 1948 Unknown [id number] 2.16. [id number] 1948 Unknown [id number] 2.16.8 [id number] Unknown [id number] 2.16.8 [id number] Unknown [id number] 2.16.8 [id number] Social History Date Type Detail Facility Start: 11-16-2019 Tobacco smoking status Never s moked tobacco (finding) [facility] Sexual Orientation [facility] Start: 09-15-2013 Sex Male (finding) [facility] Clinical Note 05-08-2025 Note Date & Type Note Facility 05-08-2025 Note Exam Date Time Procedure Performing Provider Status 05/08/25 8:56 AM US Abdomen Complete BILLIE SOLANO MD; Auth (Verified) [id number] ORIGINAL EXAMINATION: COMPLETE ABDOMINAL ULTRASOUND 05/08/2025 9:01 am COMPARISON: None. HISTORY: ORDERING SYSTEM PROVIDED HISTORY: Reason for Exam: liver abmormality seen on echo FINDINGS: LIVER: The liver demonstrates diffusely increased echogenicity without evidence of intrahepatic biliary ductal dilatation. The liver measures 14.5 cm. There are multiple anechoic liver cysts largest measuring up to 1.9 x 2 x 3.7 cm. Several of these foci are septated/multiloculated for example series 1, image 51. Antegrade flow in the main portal vein. BILIARY SYSTEM: No pericholecystic fluid. Gallbladder wall is borderline measuring 3.5 mm. There are multiple echogenic shadowing gallbladder calculi. Common bile duct is within normal limits measuring 5 mm. KIDNEYS: The kidneys are unremarkable in appearance without evidence of hydronephrosis. The right kidney measures 12.3 cm in the left kidney measures 11.8 cm. There is a an anechoic parapelvic cyst in the left kidney measuring up to 3.5 x 2.8 x 3.2 cm with a septation measuring up to 3 mm (series 1, image 102). PANCREAS: The pancreas is suboptimally visualized due to shadowing bowel gas. The visualized portions are diffusely echogenic. Small lesions are not excludable. SPLEEN: The spleen is unremarkable in appearance. Spleen is within normal limits in size. The aorta and IVC are obscured due to shadowing bowel gas. OTHER: No evidence of ascites. IMPRESSION: 1. Diffusely increased hepatic echogenicity which can be seen in setting of hepatic steatosis and or other diffuse hepatocellular disease. 2. Multiple liver cysts some of which are septated/multiloculated. Consider further evaluation with dedicated liver mass protocol CT or MRI. 3. Cholelithiasis. No secondary findings to suggest acute cholecystitis. 4. Anechoic parapelvic cyst in the left kidney measuring up to 3.5 cm with a septation measuring up to 3 mm. Recommend further evaluation with dedicated renal mass protocol CT or MRI. Interpreted by: Billie Solano Preliminary Report By: Billie Solano Electronically signed By Billie Solano Dictated Date: 05/08/2025 1:10:02 PM Prelim Date: 05/08/2025 1:18:49 PM Sign Date: 05/08/2025 1:18:49 PM Ordering Provider: JESUS STAFFORD [facility] Clinical Note 05-02-2025 Note Date & Type Note Facility 05-02-2025 Note Exam Date Time Procedure Performing Provider Status 05/02/25 9:15 AM NM Myocardial Spect Rest/Stress CHRISTOS BALDERAS MD; Auth (Verified) [id number] ORIGINAL NM MYOCARDIAL SPECT STRESS/REST CLINICAL STATEMENT: Cardiomyopathy, undefined, further testing TECHNIQUE: Lexiscan dose:0.4 mg Radiopharmaceutical (stress): Tc-99m Sestamibi Dose:26.9 mCi Radiopharmaceutical (rest): Tc-99m Sestamibi Dose:8.4 mCi SPECT acquisition and processing Reconstruction and reorientation of SPECT images into short axis, vertical and horizontal long axisplanes Quantitative LVEF assessment COMPARISON:2013 REPORT: Poststress myocardial perfusion images showed mild perfusion defect at the inferior wall and apicallateral wall and inferior septal wall Resting images showed similar perfusion LVEF 56% with apical hypokinesis TID 1.05 IMPRESSION: 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 extending to inferior and inferior septal wall Similar perfusion defect can be explained by artifact but with focal wall motion abnormality cannotrule out infarct Diaphragmatic attenuation artifact was noted No perfusion mismatch to suggest ischemia LVEF 56% with apical hypokinesis On CT scan multiple round semi echolucencies were noted in liver, suggest clinical correlation Interpreted By: Christos Herr Preliminary Report By: Christos Herr Electronically Signed By: Christos Herr Dictated Date: 05/02/2025 12:48:56 PM Prelim Date: 05/02/2025 12:48:56 PM Sign Date: 05/02/2025 12:55:30 PM Ordering Provider:Jesus Stafford [facility] Clinical Note 03-29-2025 Note Date & Type Note Facility 03-29-2025 Note Exam Date Time Procedure Performing Provider Status 03/29/25 10:46 AM Echocardiogram, Adul t - CV VONDA ROY MD; Auth (Verified) [facility] Evaluation + Plan note 02-27-2025 Laboratory Note Date & Type Note Facility 02-27-2025 Evaluation + Plan note Future Scheduled TestsMagnesium Level 02/27/25yroid Stimulating Hormone 02/27/25yroxine 02/27/25Complete Blood Count 02/27/25Lipid Profile 02/27/25Complete Metabolic Panel 02/27/25 [facility] Evaluation + Plan note Laboratory Note Date & Type Note Facility Evaluation + Plan note Future Appointments Appointment Date:04/02/2025 01:15:00 PM Scheduled Provider:JESUS STAFFORD Location:[facility] Appointment Type:CV OV Future Scheduled TestsMagnesium Level 02/27/25yroid Stimulating Hormone 02/27/25yroxine 02/27/25Complete Blood Count 02/27/25Lipid Profile 02/27/25Complete Metabolic Panel 02/27/25 [facility] Hospital course Narrative Note Date & Type Note Facility Hospital course Narrative No data available for this section [facility] Hospital Discharge instructions Note Date & Type Note Facility Hospital Discharge instructions No data available for this section [facility] Progress note Note Date & Type Note Facility Progress note No data available for this section [facility] Summary Purpose Family History No Family History Records Found No data available for this section No data available for this section No data available for this section No Family History Records FoundNo Family History Records Found No data available for this section Advance Directives No Advanced Directives Records FoundNo Advanced Directives Records FoundNo Advanced Directives Records Found Additional Source Comments (unrecognized sect ion and content) No Status Records FoundNo Status Records FoundNo Status Records Found INFORMATION SOURCE (unrecogn ized section and content) DATE CREATED AUTHOR 04/24/2019 [facility] ([place]) DATE CREATED AUTHOR AUTHOR'S ORGANIZ ATION 05/15/2025 [facility] DATE CREATED AUTHOR AUTHOR'S ORGANIZ ATION 05/16/2025 [facility] Patient Care team informatio n (unrecognized section and content) Care Team Personnel Name: GLADYS BUTLER DO Member Role: Primary Care Physician Address: [address] [address]- [place] Telecom: Care Team Related Persons Name: JAMIR SUMMERS Care Team Personnel Name: GLADYS BUTLER DO Member Role: Primary Care Physician Address: [address] [address]- [place] Telecom: Care Team Related Persons Name: JAMIR SUMMERS Care Team Personnel Name: GLADYS BUTLER DO Member Role: Primary Care Physician Address: [address] [address]- [place] Telecom: Care Team Related Persons Name: JAMIR SUMMERS Care Team Personnel Name: GLADYS BUTLER DO Member Role: Primary Care Physician Address: [address] [address]- [place] Telecom: Care Team Related Persons Name: JAMIR SUMMERS FOR RECORDS PERTAINING TO PATIENTS WHO ARE OR HAVE BEEN ENROLLED IN A CHEMICAL DEPENDENCY/SUBSTANCEABUSE PROGRAM, SOME INFORMATION MAY BE OMITTED. This clinical summary was aggregated from multiple sources. Caution should be exercised in using it in the provision of clinical care. This summary normalizes information from multiple sources, and as a consequence, information in this document may materially change the coding, format and clinical context of patient data. In addition, data may be omitted in some cases. CLINICAL DECISIONS SHOULD BE BASED ON THE PRIMARY CLINICAL RECORDS. [facility] [employer] [facility]. provides no warranty or guarantee of the accuracy or completeness of information in this document.
== END | disposition home or self-care (01) ==
LOC: CT 08:26
PROVIDERS: PCP Family Medicine; Referring Provider Physician Assistant; Visit Provider Physician Assistant
DX: Q44.6 Cystic disease of liver (principal)
CPT/HCPCS: 74177; Q9967; A4216